=== PATIENT | female | born 1985 | race Caucasian/White ===

== ENCOUNTER 2017-07-23 08:56 | Emergency (ER) | payer MEDICAID ==
[2017-07-23 09:05] VITALS: TEMP 97.9
[2017-07-23] MEDS ORDERED: NS 1,000 ML IV ONE ×2 (09:12→11:30)
[2017-07-23] MEDS ORDERED: KETOROLAC 30 MG/1 ML SDV IVP ONE (09:12)
[2017-07-23] MEDS ORDERED: ONDANSETRON 4 MG/2 ML VIAL IVP ONE ×2 (09:12→11:36)
--- NOTE | 2017-07-23 09:14 | EDPHY ---
H & P Stated Complaint: vomiting Time Seen by Provider: 07/23/17 09:08 HPI/ROS: CHIEF COMPLAINT: Vomiting HISTORY OF PRESENT ILLNESS: The patient is a 31-year-old female who comes to the emergency department complaining of nausea vomiting throughout the evening and overnight. Her symptoms began around 9:00 p.m. last night. She continues to vomit watery yellow fluid. No blood. No diarrhea. No fever. No chest pain. No shortness of breath. No abdominal pain. She denies . No sick contacts. REVIEW OF SYSTEMS: Constitutional: denies: chills, fever, recent illness, recent injury EENTM: denies: blurred vision, double vision, nose congestion Respiratory: Mild cough, no shortness of breath Cardiac: denies: chest pain, irregular heart rate, lightheadedness, palpitations Gastrointestinal/Abdominal: See HPI Genitourinary: denies: dysuria, frequency, hematuria, pain Musculoskeletal: denies: joint pain, muscle pain Skin: denies: lesions, rash, jaundice, bruising Neurological: denies: headache, numbness, paresthesia, tingling, dizziness, weakness Hematologic/Lymphatic: denies: blood clots, easy bleeding, easy bruising Immunologic/allergic: denies: HIV/AIDS, transplant EXAM: GENERAL: Retching, well-nourished and in no acute distress. HEAD: Atraumatic, normocephalic. EYES: Pupils equal round and reactive to light, extraocular movements intact, sclera anicteric, conjunctiva are normal. ENT: TMs normal, nares patent, oropharynx clear without exudates. Moist mucous membranes. NECK: Normal range of motion, supple without lymphadenopathy or JVD. LUNGS: Breath sounds clear to auscultation bilaterally and equal. No wheezes rales or rhonchi. HEART: Regular rate and rhythm without murmurs, rubs or gallops. ABDOMEN: Soft, nontender, normoactive bowel sounds. No guarding, no rebound. No masses appreciated. BACK: No CVA tenderness, no spinal tenderness, step-offs or deformities EXTREMITIES: Normal range of motion, no pitting or edema. No clubbing or cyanosis. NEUROLOGICAL: Cranial nerves II through XII grossly intact. Normal speech, normal gait. 5/5 strength, normal movement in all extremities, normal sensation PSYCH: Normal mood, normal affect. SKIN: Warm, dry, normal turgor, no visible rashes or lesions. Source: Patient - Personal History LMP (Females 10-55): Extended Cycle BCP/Inj Current Tetanus/Diphtheria Vaccine: Yes Tetanus Vaccine Date: 02/26 - Medical/Surgical History Hx Asthma: No Hx Chronic Respiratory Disease: No Hx Diabetes: No Hx Cardiac Disease: No Hx Renal Disease: No Hx Cirrhosis: No Hx Alcoholism: No Hx HIV/AIDS: No Hx Splenectomy or Spleen Trauma: No Other PMH: c section - Family History Significant Family History: No pertinent family hx - Social History Smoking Status: Never smoked Alcohol Use: Sober Drug Use: None Constitutional: Initial Vital Signs Temperature (C) 36.6 C 07/23/17 08:58 Heart Rate 108 H 07/23/17 08:58 Respiratory Rate 24 H 07/23/17 08:58 Blood Pressure 158/105 H 07/23/17 08:58 O2 Sat (%) 97 07/23/17 08:58 O2 Delivery Mode Room Air Allergies/Adverse Reactions: No Known Allergies Allergy (Verified 07/23/17 09:05) Home Medications: Medication Instructions Recorded Ondansetron Odt [Zofran Odt 4 mg 4 mg PO Q4 PRN #20 tab 07/23/17 (RX)] Medical Decision Making - Diagnostics Imaging Results: Imaging Impressions Abdomen Ultrasound 07/23/17 10:09 Impression: 1. No acute findings in the abdomen 2. Fatty liver. Findings discussed with BROOK MARROQUIN 07/23/2017 at 1127. ED Course/Re-evaluation: 1:30 p.m. the patient is feeling much better after IV fluids. Her 2nd chemistry is improved. I suspect her elevated LFTs are from the retching. Her abdominal exam remains benign. We discussed her ultrasound tests earlier. She would like to go home. She is asking for a note for work and a prescription for some Zofran. We discussed indications for returning. Differential Diagnosis: Partial list of the Differential diagnosis considered include but were not limited to; vomiting, dehydration, gastritis and although unlikely based on the history and physical exam, I also considered biliary disease, hepatitis, appendicitis, . I discussed these differential diagnoses and the plan with the patient as well as the usual and expected course. The patient understands that the diagnosis is provisional and that in medicine we are not always correct and that further workup is often warranted. Usual and customary warnings were given. All of the patient's questions were answered. The patient was instructed to return to the emergency department should the symptoms at all worsen or return, otherwise to followup with the physician as we discussed. - Data Points Laboratory Results: Laboratory Results 07/23/17 09:19 07/23/17 13:09 07/23/17 07/23/17 07/23/17 13:09 09:19 09:19 WBC RBC Hgb Hct MCV MCH MCHC RDW Plt Count MPV Neut % (Auto) Lymph % (Auto) Concho % (Auto) Eos % (Auto) Baso % (Auto) Nucleat RBC Rel Count Absolute Neuts (auto) Absolute Lymphs (auto) Absolute Monos (auto) Absolute Eos (auto) Absolute Basos (auto) Absolute Nucleated RBC Immature Gran % Immature Gran # Sodium 142 mEq/L mEq/L 142 mEq/L mEq/L (134-144) (134-144) Potassium 4.2 mEq/L mEq/L 3.3 mEq/L L mEq/L (3.5-5.2) (3.5-5.2) Chloride 109 mEq/L mEq/L 105 mEq/L mEq/L (97-110) (97-110) Carbon Dioxide 20 mEq/l L mEq/l 18 mEq/l L mEq/l (22-31) (22-31) Anion Gap 13 mEq/L mEq/L 19 mEq/L H mEq/L (8-16) (8-16) BUN 4 mg/dL L mg/dL 4 mg/dL L mg/dL (7-23) (7-23) Creatinine 0.6 mg/dL mg/dL 0.6 mg/dL mg/dL (0.6-1.0) (0.6-1.0) Estimated GFR > 60 > 60 Glucose 75 mg/dL mg/dL 112 mg/dL H mg/dL (70-100) (70-100) Calcium 9.2 mg/dL mg/dL 10.4 mg/dL mg/dL (8.5-10.4) (8.5-10.4) Total Bilirubin 2.2 mg/dL H mg/dL 2.4 mg/dL H mg/dL (0.1-1.4) (0.1-1.4) Conjugated Bilirubin 0.7 mg/dL H mg/dL 0.9 mg/dL H mg/dL (0.0-0.5) (0.0-0.5) Unconjugated Bilirubin 1.5 mg/dL H mg/dL 1.5 mg/dL H mg/dL (0.0-1.1) (0.0-1.1) AST 148 IU/L H IU/L 195 IU/L H IU/L (14-46) (14-46) ALT 161 IU/L H IU/L 196 IU/L H IU/L (9-52) (9-52) Alkaline Phosphatase 114 IU/L IU/L 144 IU/L H IU/L (38-126) (38-126) Total Protein 7.0 g/dL g/dL 8.4 g/dL H g/dL (6.3-8.2) (6.3-8.2) Albumin 4.1 g/dL g/dL 5.0 g/dL g/dL (3.5-5.0) (3.5-5.0) Lipase 60 IU/L IU/L (23-300) Beta HCG, Qual NEGATIVE 07/23/17 09:19 WBC 11.82 10^3/uL H 10^3/uL (3.80-9.50) RBC 5.32 10^6/uL 10^6/uL (4.18-5.33) Hgb 16.5 g/dL H g/dL (12.6-16.3) Hct 47.2 % H % (38.0-47.0) MCV 88.7 fL fL (81.5-99.8) MCH 31.0 pg pg (27.9-34.1) MCHC 35.0 g/dL g/dL (32.4-36.7) RDW 12.3 % % (11.5-15.2) Plt Count 317 10^3/uL 10^3/uL (150-400) MPV 9.8 fL fL (8.7-11.7) Neut % (Auto) 67.6 % % (39.3-74.2) Lymph % (Auto) 23.6 % % (15.0-45.0) Concho % (Auto) 7.3 % % (4.5-13.0) Eos % (Auto) 0.6 % % (0.6-7.6) Baso % (Auto) 0.6 % % (0.3-1.7) Nucleat RBC Rel Count 0.0 % % (0.0-0.2) Absolute Neuts (auto) 8.00 10^3/uL H 10^3/uL (1.70-6.50) Absolute Lymphs (auto) 2.79 10^3/uL 10^3/uL (1.00-3.00) Absolute Monos (auto) 0.86 10^3/uL H 10^3/uL (0.30-0.80) Absolute Eos (auto) 0.07 10^3/uL 10^3/uL (0.03-0.40) Absolute Basos (auto) 0.07 10^3/uL 10^3/uL (0.02-0.10) Absolute Nucleated RBC 0.00 10^3/uL 10^3/uL (0-0.01) Immature Gran % 0.3 % % (0.0-1.1) Immature Gran # 0.03 10^3/uL 10^3/uL (0.00-0.10) Sodium Potassium Chloride Carbon Dioxide Anion Gap BUN Creatinine Estimated GFR Glucose Calcium Total Bilirubin Conjugated Bilirubin Unconjugated Bilirubin AST ALT Alkaline Phosphatase Total Protein Albumin Lipase Beta HCG, Qual Medications Given: Discontinued Medications Sodium Chloride (Ns) 1,000 mls @ 0 mls/hr IV EDNOW ONE; Wide Open PRN Reason: Protocol Stop: 07/23/17 09:13 Last Admin: 07/23/17 09:16 Dose: 1,000 mls Sodium Chloride (Ns) 1,000 mls @ 0 mls/hr IV EDNOW ONE; Wide Open PRN Reason: Protocol Stop: 07/23/17 11:31 Last Admin: 07/23/17 12:00 Dose: Not Given Potassium Chloride/Sodium Chloride (Ns W/ 20 Kcl/L) 1,000 mls @ 1,000 mls/hr IV EDNOW ONE PRN Reason: Protocol Stop: 07/23/17 12:42 Last Admin: 07/23/17 11:52 Dose: 1,000 mls Ketorolac Tromethamine (Toradol) 30 mg IVP EDNOW ONE Stop: 07/23/17 09:13 Last Admin: 07/23/17 09:17 Dose: 30 mg Ondansetron HCl (Zofran) 4 mg IVP EDNOW ONE Stop: 07/23/17 09:13 Last Admin: 07/23/17 09:16 Dose: 4 mg Ondansetron HCl (Zofran) 4 mg IVP EDNOW ONE Stop: 07/23/17 11:37 Last Admin: 07/23/17 11:51 Dose: 4 mg Potassium Chloride (Klor-Con) 20 meq PO EDNOW ONE Stop: 07/23/17 11:33 Last Admin: 07/23/17 11:59 Dose: Not Given Departure - Departure Disposition: Home, Routine, Self-Care Clinical Impression: Fatty liver Vomiting Qualifiers: Vomiting type: bilious vomiting Nausea presence: with nausea Qualified Code(s) : R11.14 - Bilious vomiting Condition: Fair Instructions: Acute Nausea and Vomiting (ED), Non-Alcoholic Fatty Liver Disease (ED) Referrals: [facility],. [Primary Care Provider] - As per Instructions Stand Alone Forms: Work Excuse Prescriptions: Ondansetron Odt [Zofran Odt 4 mg (RX)] 4 mg PO Q4 PRN #20 tab PRN Reason: Nausea & Vomiting
[2017-07-23 09:30] LABS: % IMMATURE GRANULYOCYTES 0.3 % (0.0-1.1); ABSOLUTE IMMATURE GRANULOCYTES 0.03 10^3/uL (0.00-0.10); ADD DIFF? NO; ADD MORPH? NO; ADD SCAN? NO; ATYPICAL LYMPHOCYTE FLAG 0 (0-99); FRAGMENT RBC FLAG 0 (0-99); HEMATOCRIT 47.2 % (38.0-47.0); HEMOGLOBIN 16.5 g/dL (12.6-16.3); LEFT SHIFT FLG 0 (0-99); LIPEMIA HEMOLYSIS FLAG 90 (0-99); MEAN CELL VOLUME 88.7 fL (81.5-99.8); MEAN PLATELET VOLUME 9.8 fL (8.7-11.7); PLATELET CLUMPS FLAG 0 (0-99); PLATELET COUNT 317 10^3/uL (150-400); RED BLOOD CELL COUNT 5.32 10^6/uL (4.18-5.33); RED CELL DISTRIBUTION WIDTH 12.3 % (11.5-15.2)
[2017-07-23 09:46] LABS: ALANINE AMINOTRANSFERASE 196 IU/L (9-52); ALKALINE PHOSPHATASE 144 IU/L (38-126); ANION GAP 19 mEq/L (8-16); ASPARTATE AMINOTRANSFERASE 195 IU/L (14-46); BILIRUBIN,TOTAL 2.4 mg/dL (0.1-1.4); BILIRUBIN-CONJUGATED 0.9 mg/dL (0.0-0.5); BILIRUBIN-UNCONJUGATED 1.5 mg/dL (0.0-1.1); CALCIUM 10.4 mg/dL (8.5-10.4); CARBON DIOXIDE 18 mEq/l (22-31); CHLORIDE 105 mEq/L (97-110); CREATININE 0.6 mg/dL (0.6-1.0); GLOMERULAR FILTRATION RATE > 60; GLUCOSE 112 mg/dL (70-100); POTASSIUM 3.3 mEq/L (3.5-5.2); SODIUM 142 mEq/L (134-144); TOTAL PROTEIN 8.4 g/dL (6.3-8.2)
[2017-07-23] MEDS ORDERED: POTASSIUM CL 10 MEQ TAB PO ONE (11:32)
[2017-07-23] MEDS ORDERED: NS W/ 20 KCl/L 1,000 ML IV ONE (11:43)
[2017-07-23 11:53] VITALS: RESP 18
[2017-07-23 13:23] LABS: ALANINE AMINOTRANSFERASE 161 IU/L (9-52); ALBUMIN 4.1 g/dL (3.5-5.0); ALKALINE PHOSPHATASE 114 IU/L (38-126); ANION GAP 13 mEq/L (8-16); ASPARTATE AMINOTRANSFERASE 148 IU/L (14-46); BILIRUBIN,TOTAL 2.2 mg/dL (0.1-1.4); BILIRUBIN-CONJUGATED 0.7 mg/dL (0.0-0.5); BILIRUBIN-UNCONJUGATED 1.5 mg/dL (0.0-1.1); CALCIUM 9.2 mg/dL (8.5-10.4); CARBON DIOXIDE 20 mEq/l (22-31); CHLORIDE 109 mEq/L (97-110); CREATININE 0.6 mg/dL (0.6-1.0); GLOMERULAR FILTRATION RATE > 60; GLUCOSE 75 mg/dL (70-100); POTASSIUM 4.2 mEq/L (3.5-5.2); SODIUM 142 mEq/L (134-144)
[2017-07-23 13:33] VITALS: BP 116/69; PULSE 70; O2SAT 97
== END 2017-07-23 13:43 | disposition home or self-care (01) ==
LOC: CED 08:56
DX: R11.14 Bilious vomiting (principal); K76.0 Fatty (change of) liver, not elsewhere classified; E86.9 Volume depletion, unspecified
CPT/HCPCS: 76705-PO; 80048-PO; 80076-PO; 83690-PO; 84703-PO; 85025-PO; 96365; J1885; J2405

== ENCOUNTER 2019-03-07 07:53 | Emergency (ER) | payer MEDICAID ==
[2019-03-07] MEDS ORDERED: FAMOTIDINE 20 MG in NS 100 ML IV ONE (08:40)
[2019-03-07] MEDS ORDERED: ONDANSETRON 4 MG/2 ML VIAL IVP ONE ×2 (08:40→09:47)
[2019-03-07] MEDS ORDERED: NS 1,000 ML IV ONE (08:40)
--- NOTE | 2019-03-07 08:47 | EDPHY ---
H & P Stated Complaint: cough,diarrhea,vomiting blood for 1 month,nausea Time Seen by Provider: 03/07/19 08:02 HPI/ROS: CHIEF COMPLAINT: Vomited blood this morning HISTORY OF PRESENT ILLNESS: This is a 33-year-old female with a history of depression and anxiety who presents after vomiting blood this morning. She describes significant stressors in her life, related to the deaths of loved ones , and tells me that she is drinking 5-10 shots of vodka daily. She drinks during the day. She describes substernal burning sensation that is intermittent. She has some occasional lower abdominal pain. She does not usually vomit. She has had soft stools during the past month. She reports 2-3 bowel movements daily. The stools are not liquid but are soft. She has not seen blood in her stool. She recognizes that her drinking is a problem. She thinks that she vomited blood this morning because of her alcohol use. Her unexpectedly 1 year ago. She was drinking heavily after that and underwent inpatient treatment, after which she was sober for several months. However she is again thinking heavily. Since the of her she has also lost her mother and another family member. She had been taking sertraline and hydroxyzine. She stopped taking these medications a few weeks ago. She has an appointment with a therapist on . She is not suicidal or homicidal. In addition, she reports a dry cough that has been present intermittently for the past month. No fever, chest pain, or difficulty breathing. REVIEW OF SYSTEMS: A ten system review of systems was performed and is negative with the exception of the items mentioned in the HPI. Past medical history: 1. Depression and anxiety 2. Ovarian cysts Past surgical history: section Family history: Mother recently of colon cancer. She has an aunt who had ovarian cancer. Brother with an astrocytoma. There is also a family history of hypertension and alcohol abuse. Social history: She has been for 1 year. She lives with her 2 children , aged 10 and 3. She does not use tobacco products other than occasionally [employer] Ng. No illicit drugs. Daily alcohol use, reported 5-10 shots per day. 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 General Appearance: Alert. Vital signs reviewed. Blood pressure 157/97 at triage. Intermittent dry cough. Crying. Eyes: Pupils equal and round, no conjunctival injection, no discharge. Anicteric. ENT, Mouth: Mucous membranes are slightly dry, no oropharyngeal erythema or edema. Neck: No lymphadenopathy, supple. Respiratory: Lungs are clear to auscultation; no wheezes, rales, or rhonchi. Cardiovascular: Regular rate and rhythm; no murmur, rub, or gallop. Gastrointestinal: Abdomen is soft with mild tenderness in the right upper quadrant midepigastrium, no guarding, no masses or organomegaly, bowel sounds normal. Skin: Warm and dry, no rashes on exposed skin, normal color. Back: Nontender to palpation over the thoracolumbar spine. No CVAT. Extremities: No lower extremity edema, no calf tenderness or swelling. Neurological: Alert and oriented. Moving all four extremities easily and equally. LEANN. EOMI. Tongue midline. Facial expressions symmetric. Psychiatric: Sad affect, crying on and off. - Personal History LMP (Females 10-55): Extended Cycle BCP/Inj Current Tetanus Diphtheria and Acellular Pertussis (TDAP): Yes Tetanus Vaccine Date: 02/26 - Medical/Surgical History Hx Asthma: No Hx Chronic Respiratory Disease: No Hx Diabetes: No Hx Cardiac Disease: No Hx Renal Disease: No Hx Cirrhosis: No Hx Alcoholism: No Hx HIV/AIDS: No Hx Splenectomy or Spleen Trauma: No Other PMH: c section,depression,anxiety - Social History Smoking Status: Never smoked Constitutional: Initial Vital Signs Temperature (C) 37.2 C 03/07/19 08:03 Heart Rate 87 03/07/19 08:03 Respiratory Rate 18 03/07/19 08:03 Blood Pressure 159/97 H 03/07/19 08:03 O2 Sat (%) 94 03/07/19 08:03 O2 Delivery Mode Room Air Allergies/Adverse Reactions: No Known Allergies Allergy (Verified 03/07/19 08:01) Home Medications: Medication Instructions Recorded Benzonatate [Tessalon Pearles (RX)] 100 mg PO TID #15 cap 03/07/19 Hydroxyzine HCl 03/07/19 Omeprazole 20 mg PO DAILY #14 tablet. 03/07/19 Ondansetron Odt [Zofran Odt 4 mg 4 mg PO Q4 PRN #10 tab 03/07/19 (RX)] Promethazine HCl [Phenergan 25mg 25 mg PO Q6 PRN #6 tab 03/07/19 (*)] Sertraline HCl 03/07/19 chlordiazePOXIDE [Librium 25 mg 25 - 50 mg PO TID PRN #12 cap 03/07/19 (*)] Medical Decision Making ED Course/Re-evaluation: 33-year-old with history of anxiety, depression, and alcohol abuse. She presents after vomiting blood x1 this morning. I suspect that this is gastritis. Her abdominal exam reveals some mild midepigastric and right upper quadrant tenderness, no guarding. She is hypertensive and she is not tachycardic--nothing to suggest ongoing or significant blood loss. CBC, chemistries, lipase, liver functions ordered. She will receive IV Pepcid, IV Zofran, and 1 L IV fluids. Patient serially evaluated. At the time of my 2nd evaluation she is complaining of return of nausea. A 2nd dose of Zofran 4 mg IV given. She has completed IV Pepcid and a L of normal saline. She has not had any vomiting in the department. Her abdomen remains soft with very minimal midepigastric and right upper quadrant tenderness. We spoke at some length about her alcohol use and also her grief. She does have an appointment with a therapist within the week. She is given a referral to [facility] and understands that she could be seen there on an emergency basis. She is not suicidal or homicidal. She is also given referrals to AA and [facility]. She notes that her liver functions are elevated. I have not found evidence of an infectious process such as cholecystitis or gastroenteritis. Lipase is within normal limits and I do not think that this is pancreatitis. She does not have a surgical abdomen. No lower abdominal pain and I do not suspect ovarian cysts or urinary tract infection. She is given a prescription for omeprazole. - Data Points Medications Given: Discontinued Medications Sodium Chloride (Ns) 1,000 mls @ 0 mls/hr IV EDNOW ONE; Wide Open PRN Reason: Protocol Stop: 03/07/19 08:41 Last Admin: 03/07/19 09:01 Dose: 1,000 mls Famotidine 20 mg/ Sodium (Chloride) 102 mls @ 408 mls/hr IV EDNOW ONE Stop: 03/07/19 08:54 Last Admin: 03/07/19 09:07 Dose: 102 mls Metoclopramide HCl (Reglan Injection) 10 mg IVP EDNOW ONE Stop: 03/07/19 10:38 Last Admin: 03/07/19 10:42 Dose: 10 mg Ondansetron HCl (Zofran) 4 mg IVP EDNOW ONE Stop: 03/07/19 08:41 Last Admin: 03/07/19 09:03 Dose: 4 mg Ondansetron HCl (Zofran) 4 mg IVP EDNOW ONE Stop: 03/07/19 09:48 Last Admin: 03/07/19 09:50 Dose: 4 mg Point of Care Test Results: CBC CBC Collection Date 03/07/19 CBC Collection Time 09:49 WBC 8.16 RBC 4.98 HGB 15.4 HCT 45.6 PLT 253 Neut # 4.99 Neut 61.2 LYMPH # 2.01 LYMPH 24.6 MCV 91.6 Chemistry 03/07/19 03/07/19 09:08 08:54 POC Sodium 144 mEq/L mEq/L (135-145) POC Potassium 3.2 mEq/L L mEq/L (3.3-5.0) POC Chloride 106.0 mEq/L mEq/L (97-110) POC Total CO2 22 mEq/L mEq/L (22-31) POC BUN 4 mg/dL L mg/dL (7-23) POC Creatinine 0.6 mg/dL mg/dL (0.6-1.0) POC Glucose 110 mg/dL H mg/dL (70-100) POC Calcium 9.7 mg/dL mg/dL (8.5-10.4) POC Total Bilirubin 1.2 mg/dL mg/dL (0.1-1.4) POC GGT 221 IU/L H IU/L (5-65) POC AST 272 IU/L H IU/L (14-46) POC ALT 193 IU/L H IU/L (9-52) POC Alk Phosphatase 116 IU/L IU/L (38-126) POC Total Protein 8.4 g/dL H g/dL (6.3-8.2) POC Albumin 4.4 g/dL g/dL (3.5-5.0) POC Amylase 56 IU/L IU/L (30-110) Basic Metabolic Panel BMP Collection Date 03/07/19 BMP Collection Time 09:49 Liver Function Tests LFT Collection Date 03/07/19 LFT Collection Time 08:49 Departure - Departure Disposition: Home, Routine, Self-Care Clinical Impression: Gastritis Qualifiers: Gastritis type: alcoholic Chronicity: acute Gastritis bleeding: presence of bleeding unspecified Qualified Code(s): K29.20 - Alcoholic gastritis without bleeding Condition: Good Instructions: Gastritis (ED), Alcohol Withdrawal (ED) Additional Instructions: I am prescribing an anti-nausea medication, zofran. Let the tablet dissolved under your tongue. You can take 4-8 mg every four hours as needed. I am also prescribing a pill for cough. I am prescribing an acid-blocking medication for you to take for the next two weeks. I am referring you to a barn and property manager. Any doctor in his group would be fine to see. I recommend that you [facility]. It is important for your primary care provider to be aware of what is going on in your life--both physically and emotionally. Please be sure that you keep your appointment with the therapist next week. If you feel the need to see someone sooner you can contact [facility]--they will see you on an emergency basis. I think that you have gastritis, likely because of your alcohol abuse. Your liver functions are elevated today. I am providing some referrals for alcohol recovery. Referrals: [facility] [Other] - As per Instructions AA Hotline [Outside] - As per Instructions [facility] [Outside] - As per Instructions [facility] [Outside] - As per Instructions Collins Leach MD [Medical Doctor] - As per Instructions Prescriptions: Benzonatate [Tessalon Pearles (RX)] 100 mg PO TID #15 cap chlordiazePOXIDE [Librium 25 mg (*)] 25 - 50 mg PO TID PRN #12 cap PRN Reason: alcohol withdrawal Omeprazole 20 mg PO DAILY #14 tablet. Ondansetron Odt [Zofran Odt 4 mg (RX)] 4 mg PO Q4 PRN #10 tab PRN Reason: nausea Promethazine HCl [Phenergan 25mg (*)] 25 mg PO Q6 PRN #6 tab PRN Reason: nausea
[2019-03-07] MEDS ORDERED: METOCLOPRAMIDE 10 MG/2 ML VIAL ONE (10:36)
[2019-03-07] MEDS ORDERED: METOCLOPRAMIDE 10 MG/2 ML VIAL IVP ONE (10:37)
[2019-03-07 11:27] VITALS: BP 148/88
== END 2019-03-07 11:23 | disposition home or self-care (01) ==
LOC: CED 07:53
DX: K29.20 Alcoholic gastritis without bleeding (principal); F32.9 Major depressive disorder, single episode, unspecified; F41.9 Anxiety disorder, unspecified
CPT/HCPCS: 80048-ER; 80076-ER; 82150-ER; 85025-QW-ER; 85379-QW-ER; 96361-ER; 96374-ER; 96375-ER; 96376-ER; 99284-ER; J2405; J2765